=== PATIENT | male | born 1960 | race Caucasian/White ===

== ENCOUNTER 2023-03-19 09:36 | Emergency (ER) | payer MEDICAID, SELFPAY ==
[2023-03-19 09:40] VITALS: BP 156/87; PULSE 69; RESP 18; TEMP 36.7; O2SAT 96; BMI 24.6
--- NOTE | 2023-03-19 09:57 | ED.LOWEXI1 ---
HPI - Extremity Injury (Lower) General Chief Complaint: Extremity Injury, Lower Stated Complaint: FALL LOWER EXTREMITY RIGHT LEG Time Seen by Provider: 03/19/23 09:57 Source: patient Mode of arrival: Wheelchair Limitations: no limitations History of Present Illness HPI Narrative: pt presents to the emergency department complaining of right ankle pain. Patient states on Monday he rolled his ankle. He had pain since worse with weightbearing. He has rest, ice, But elevated and is still not able to put any weight on it. Denies any paresthesias. He states there is increased swelling and ecchymosis noted. He denies any previous injury. He denies any other injury. Denies any paresthesias, weakness. Related Data Previous Rx's Medication Instructions Recorded ibuprofen 800 mg tablet 800 mg PO Q8H PRN pain #20 tabs 03/19/23 Allergies Allergy/AdvReac Type Severity Reaction Status Date / Time No Known Drug Allergies Allergy Verified 03/19/23 09:40 Review of Systems ROS Status of ROS 10 or more systems reviewed and unremarkable except as noted in history and below Exam Narrative Exam Narrative: Nurses notes and vital signs reviewed and patient is not hypoxic. General: Nontoxic, Well-appearing and in no apparent distress. Skin: Warm, dry, no pallor noted. No Rash Head: Normocephalic, atraumatic. Neck: Supple, non-tender. Eye: Pupils are equal, round and EOMI. No scleral icterus. Ears, Nose, Mouth, and Throat: TM clear, no posterior oropharynx erythema or nasal mucosal hypertrophy, uvula is mid-line Oral mucosa is moist Cardiovascular: Regular Rate and Rhythm without murmur, gallop or rub. Respiratory: No accessory muscle use or respiratory distress. Lungs are clear to auscultation, no wheezing, rales or rhonchi Chest Wall: no tenderness Back: No midline thoracic or lumbar vertebral tenderness. No CVA tenderness Musculoskeletal: Ecchymosis to the ankle and edema noted distally to the tip toes. There is moderate tenderness to palpation of the medial and lateral malleolus. There is no tenderness at the midfoot. DP +2, capillary refill is brisk. Range of motion is limited by pain at the ankle. Patient is able to wiggle his toes without any problems. There is no tenderness at the base of the 5th. GI: Abdomen is soft, non-distended. Normal bowel sounds. No masses appreciated. No tenderness to palpation. No rebound, guarding, or rigidity noted. Neurological: A&O x4. No cranial nerve dysfunction observed. No truncal ataxia. Moves all extremities. Sensation intact. Psychiatric: Cooperative and interactive. Normal mood and affect. Constitutional Vital Signs - 24 hr 03/19/23 09:40 Temperature 98.1 F Pulse Rate [Monitor] 69 Respiratory Rate 18 Blood Pressure [Left Arm] 156/87 H Pulse Oximetry 96 Oxygen Delivery Method Room Air Course Vital Signs Vital signs: Vital Signs Temperature 98.1 F 03/19/23 09:40 Pulse Rate 69 03/19/23 09:40 Respiratory Rate 18 03/19/23 09:40 Blood Pressure 156/87 H 03/19/23 09:40 Pulse Oximetry 96 03/19/23 09:40 Oxygen Delivery Method Room Air 03/19/23 09:40 Temperature 98.1 F 03/19/23 09:40 Pulse Rate 69 03/19/23 09:40 Respiratory Rate 18 03/19/23 09:40 Blood Pressure 156/87 H 03/19/23 09:40 Pulse Oximetry 96 03/19/23 09:40 Oxygen Delivery Method Room Air 03/19/23 09:40 MDM - Extremity Injury (Lower) MDM Narrative Medical decision making narrative: Crease ordered. Discussed with patient. Patient was placed on an ice wrap. He has TAKE at home. He is supposed follow-up with primary care doctor in the morning for reevaluation. At this time the patient is without objective evidence of an acute process requiring hospitalization or inpatient management. The patient has remained hemodynamically stable. No additional indication for emergent studies at this time. I answered all questions. Discussed discharge instructions including standard anticipatory guidance and what should prompt a return to the emergency department, including if they get worse are not getting better or develops any new or concerning symptoms. I've given them specific time frame in which to follow-up, and who to follow-up with. The patient demonstrates understanding. Patient is nontoxic and stable for discharge with outpatient follow-up. This note was created with the assistance of a speech recognition program. Although the intention is to generate documents that actually reflects the content of the visit, no guarantees can be provided that every mistake has been identified and corrected by editing. Differential Diagnosis Differential diagnosis: Likely ankle sprain and strain, acute internal derangement of knee, fracture of femur, fracture of hip and ankle fracture Discharge Plan Discharge Chief Complaint: Extremity Injury, Lower Clinical Impression: Ankle sprain and strain Patient Disposition: Home, Self-Care Time of Disposition Decision: 11:17 Condition: Good Mode of Transportation: Private Vehicle Prescriptions / Home Meds: New ibuprofen 800 mg tablet 800 mg PO Q8H PRN (Reason: pain) Qty: 20 0RF Stand Alone Forms: Portal Instructions Referrals: Igor Soliman MD [Physician] - 1 week ([phone]) Shaikh Barroso MD [Primary Care Provider] - 1 week
--- NOTE | 2023-03-19 10:12 | XR_ITS ---
[address] [address] Patient Name: MEGAN HAQ MRN: [id number] date: 1960 Sex: M Assigned Patient Location: ER Current Patient Location: ER Accession/Order Number: [id number] Exam Date: 03/19/2023 10:28 Report Date: 03/19/2023 10:49 At the request of: BRYSON YAÑEZ Procedure: XR ankle RT min 3V EXAMINATION: XR foot RT min 3V, XR ankle RT min 3V HISTORY: Fall TECHNIQUE: XR foot RT min 3V, XR ankle RT min 3V COMPARISON: None RESULT: Minor degenerative changes first MTP. No acute fracture or dislocation. Mild ankle soft tissue swelling. No opaque foreign body. No other significant abnormality. IMPRESSION: No acute fracture of the right foot and ankle. Mild ankle soft tissue swelling. Electronically authenticated by: SKYLAR PARMAR Date: 03/19/2023 10:49
--- NOTE | 2023-03-19 10:26 | XR_ITS ---
[address] [address] Patient Name: MEGAN HAQ MRN: [id number] date: 1960 Sex: M Assigned Patient Location: ER Current Patient Location: ER Accession/Order Number: [id number] Exam Date: 03/19/2023 10:28 Report Date: 03/19/2023 10:49 At the request of: BRYSON YAÑEZ Procedure: XR foot RT min 3V EXAMINATION: XR foot RT min 3V, XR ankle RT min 3V HISTORY: Fall TECHNIQUE: XR foot RT min 3V, XR ankle RT min 3V COMPARISON: None RESULT: Minor degenerative changes first MTP. No acute fracture or dislocation. Mild ankle soft tissue swelling. No opaque foreign body. No other significant abnormality. IMPRESSION: No acute fracture of the right foot and ankle. Mild ankle soft tissue swelling. Electronically authenticated by: SKYLAR PARMAR Date: 03/19/2023 10:49
== END 2023-03-19 11:24 | disposition home or self-care (01) ==
PROVIDERS: Emergency Provider Emergency Medicine; PCP Internal Medicine
DX: S93.401A Sprain of unspecified ligament of right ankle, initial encounter (principal); S96.911A Strain of unspecified muscle and tendon at ankle and foot level, right foot, initial encounter; X50.9XXA Other and unspecified overexertion or strenuous movements or postures, initial encounter
CPT/HCPCS: 73610; 73630; 99283

== ENCOUNTER 2023-04-18 14:53 | Outpatient (OUT) | payer MEDICAID, SELFPAY ==
--- NOTE | 2023-04-18 15:09 | CT_ITS ---
[address] [address] Patient Name: MEGAN HAQ MRN: [id number] date: 1960 Sex: M Assigned Patient Location: CT Current Patient Location: Accession/Order Number: [id number] Exam Date: 04/18/2023 15:05 Report Date: 04/19/2023 07:13 At the request of: SHAIKH DINO Procedure: CT lung screening low-dose EXAMINATION: CT lung screening low-dose HISTORY: Nicotine Dependence F17.210 COMPARISON: No relevant comparison available. TECHNIQUE: Axial, Coronal, and Sagittal images were created without the administration of IV contrast material. Dose reduction techniques were achieved by using automated exposure control and/or adjustment of mA and/or kV according to patient size and/or use of iterative reconstruction technique. FINDINGS: LUNGS: Numerous rounded and geographic shaped calcified nodules throughout the lungs suspected to represent granulomas. Mild emphysematous changes, possible early peripheral fibrotic changes. Mild haziness throughout the lung parenchyma; likely atelectasis, but possibly mild edema. PLEURA: No mass, effusion, or pneumothorax. VASCULATURE: No abnormality. MARTIN: Calcified lymph nodes compatible with chronic granulomatous disease. MEDIASTINUM: Calcified lymph nodes. CARDIAC: No enlargement, pericardial thickening, or significant calcification. AORTA: No aneurysm or dissection. CHEST WALL: No mass or axillary adenopathy BONES: No bone lesion or fracture. Mechanical fusion of the visible lower cervical spine. LIMITED ABDOMEN: Approximately 2 cm stone within gallbladder; only partially seen on today's study than. OTHER: Negative. CT/CT lung screening low-dose IMPRESSION: 1. Lung-RADS Category 3- Probably benign. Probably benign finding(s)- short term follow up suggested; includes nodules with a low likelihood of becoming a clinically active cancer. Six month LDCT. 2. Emphysematous changes and suspected early peripheral fibrotic changes. 3. Cholelithiasis. Electronically authenticated by: TITUS ALMENDAREZ Date: 04/19/2023 07:13
== END 2023-04-18 14:54 | disposition home or self-care (01) ==
LOC: CT 14:53
PROVIDERS: PCP Internal Medicine; Visit Provider Internal Medicine
DX: Z12.2 Encounter for screening for malignant neoplasm of respiratory organs (principal); F17.210 Nicotine dependence, cigarettes, uncomplicated
CPT/HCPCS: 71271

== ENCOUNTER 2023-11-01 13:36 | Outpatient (OUT) | payer MEDICAID, SELFPAY ==
--- NOTE | 2023-11-01 13:48 | CT_ITS ---
[address] [address] Patient Name: MEGAN HAQ MRN: [id number] date: 1960 Sex: M Assigned Patient Location: CT Current Patient Location: CT Accession/Order Number: [id number] Exam Date: 11/01/2023 13:54 Report Date: 11/01/2023 14:22 At the request of: SHAIKH DINO Procedure: CT chest wo con EXAMINATION: CT chest wo con HISTORY: multiple lung nodules on ct R91.8 COMPARISON: 04/18/2023 TECHNIQUE: Multi-planar CT images were created with IV contrast. Axial, Coronal, and Sagittal images. Dose reduction techniques were achieved by using automated exposure control and/or adjustment of mA and/or kV according to patient size and/or use of iterative reconstruction technique. FINDINGS: LUNGS: Mild stable paraseptal and centrilobular emphysema with an upper lobe predominance. Scattered calcified and noncalcified pulmonary nodules stable both in number and size from the prior exam.. Some mild peripheral intralobular septal thickening could represent early pulmonary fibrosis. PLEURA: No mass, effusion, or pneumothorax. VASCULATURE: No abnormality. MARTIN: Calcified right hilar lymph nodes MEDIASTINUM: Calcified pretracheal lymph nodes CARDIAC: No enlargement, pericardial thickening, or significant calcification. AORTA: No aneurysm or dissection. CHEST WALL: No mass or axillary adenopathy. BONES: No bone lesion or fracture. LIMITED ABDOMEN: No suspicious findings. Limited images of the upper abdomen. OTHER: Negative. CT/CT chest wo con IMPRESSION: Stable scattered subcentimeter pulmonary nodules noted which are calcified. I favor remote granulomatous disease. No new significant pulmonary nodule or mass Stable mild pulmonary fibrosis and emphysema Electronically authenticated by: JULES HAQUE Date: 11/01/2023 14:22
== END 2023-11-01 13:37 | disposition home or self-care (01) ==
LOC: CT 13:36
PROVIDERS: PCP Internal Medicine; Visit Provider Internal Medicine
DX: R91.8 Other nonspecific abnormal finding of lung field (principal)
CPT/HCPCS: 71250